=== PATIENT | male | born 2000 | race African-American/Black ===

== ENCOUNTER 2023-07-14 21:23 | Emergency (ER) | payer OTHER ==
[~2023-07-14] VITALS: Ht 182.9 cm; Wt 59.9 kg
[2023-07-14 21:48] VITALS: BP 129/92; PULSE 64; RESP 16; TEMP 98; O2SAT 98
[2023-07-15] MEDS ORDERED: PENI500T20 PO ×2 (01:39→01:41)
[2023-07-15] MEDS ORDERED: NAPR-54 PO (01:39)
[2023-07-15 01:45] VITALS: BP 129/92; PULSE 64; RESP 16; TEMP 98; O2SAT 98
== END 2023-07-15 01:45 | disposition home or self-care (01) ==
LOC: MED 21:23
DX: K02.9 Dental caries, unspecified (principal); K13.79 Other lesions of oral mucosa; Z79.899 Other long term (current) drug therapy
CPT/HCPCS: 99283

== ENCOUNTER 2023-07-20 16:33 | Emergency (ER) | payer OTHER ==
[~2023-07-20] VITALS: Ht 182.9 cm; Wt 59.0 kg
[~2023-07-20 16:33] MED LIST: NAPR-54 PO; PENI500T20 PO
[2023-07-20 16:43] VITALS: BP 134/96; PULSE 94; RESP 18; TEMP 98.1; O2SAT 98
[2023-07-20] MEDS ORDERED: BACITRACIN OINT 500 UNITS/GM PKT TP ONE (17:20)
[2023-07-20] MEDS ORDERED: BACI-418 TP (17:29)
[2023-07-20] MEDS ORDERED: IBUP-1842 PO (17:29)
[2023-07-20] MEDS ORDERED: IBUPROFEN 400 MG TAB ONE (17:50)
[2023-07-20] MEDS ORDERED: IBUPROFEN 400 MG TAB PO ONE (17:50)
[2023-07-20 18:12] VITALS: BP 134/96; PULSE 94; RESP 18; TEMP 98.1; O2SAT 98
== END 2023-07-20 18:12 | disposition home or self-care (01) ==
LOC: MED 16:33
DX: S61.212A Laceration without foreign body of right middle finger without damage to nail, initial encounter (principal); S61.210A Laceration without foreign body of right index finger without damage to nail, initial encounter; Z23 Encounter for immunization; Z79.899 Other long term (current) drug therapy; W45.8XXA Other foreign body or object entering through skin, initial encounter; Y93.89 Activity, other specified; Y92.89 Other specified places as the place of occurrence of the external cause; Y99.0 Civilian activity done for income or pay
CPT/HCPCS: 90471; 90715; 99283

== ENCOUNTER 2023-07-27 15:12 | Emergency (ER) | payer OTHER ==
[~2023-07-27] VITALS: Ht 182.9 cm; Wt 59.0 kg
[~2023-07-27 15:12] MED LIST changes: +BACI-418 TP; +IBUP-1842 PO
[2023-07-27 15:58] VITALS: BP 138/98; PULSE 77; RESP 18; TEMP 97.7; O2SAT 100
[2023-07-27 18:16] VITALS: BP 138/98; PULSE 77; RESP 18; TEMP 97.7; O2SAT 100
== END 2023-07-27 18:17 | disposition home or self-care (01) ==
LOC: MED 15:12
DX: S61.212D Laceration without foreign body of right middle finger without damage to nail, subsequent encounter (principal); S61.011D Laceration without foreign body of right thumb without damage to nail, subsequent encounter; Z79.899 Other long term (current) drug therapy; X58.XXXD Exposure to other specified factors, subsequent encounter
CPT/HCPCS: 99281